=== PATIENT | female | born 2005 | race Caucasian/White ===

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

== ENCOUNTER 2025-03-07 14:07 | Emergency (ER) | payer OTHER ==
[~2025-03-07] VITALS: Ht 167.6 cm; Wt 89.1 kg
[2025-03-07 16:27] VITALS: BP 114/68; TEMP 97.7; O2SAT 100
[2025-03-07] MEDS ORDERED: OFLOSO OTIC (17:13)
== END 2025-03-07 17:23 | disposition home or self-care (01) ==
LOC: M ED 14:07
DX: H72.02 Central perforation of tympanic membrane, left ear (principal)

== ENCOUNTER → 2025-03-30 | Outpatient (CLI) | payer OTHER ==
[~2025-03-30] MED LIST changes: -ALBUTEROL SULFATE 2.5 MG/0.5 ML INH CONCENTRATE NEB SOLN INH PRN; -EPINEPHrine INJ 1 MG/ML 1ML AMP IM PRN; +OFLOSO OTIC; -diphenhydrAMINE 50 MG/ML VIAL IV PRN
[2025-03-30 14:33] LABS: BASO # 0.0 10^3/uL (0.0-0.2); BASO % 0.3 % (0.0-1.0); EOS # 0.1 10^3/uL (0.0-0.5); EOS % 0.8 % (0.0-3.0); LYMPH # 3.5 10^3/uL (1.5-5.0); LYMPH % 32.4 % (24.0-44.0); MONO # 0.6 10^3/uL (0.0-0.8); MONO % 5.8 % (2.0-8.0); NEUTROPHILS # 6.5 10^3/uL (1.5-8.5); NEUTROPHILS % 60.3 % (36.0-66.0); PLATELET COUNT, AUTOMATED 278 10^3/uL (150-450)
[2025-03-30 14:57] LABS: IRON (FE) 47.0 UG/DL (50-170); PERCENT SATURATION 19.0 % (13.2-45.0)
== END ==
LOC: M WUC 12:37
PROVIDERS: ATTEND Nurse Practitioner Adult Health
DX: D50.9 Iron deficiency anemia, unspecified (principal)